=== PATIENT | male | born 1930 | race Hispanic/Latino ===

== ENCOUNTER 2017-02-14 11:00 | Emergency (ER) | payer MEDICARE, BC ==
[2017-02-14 11:04] VITALS: BMI 23.4
[2017-02-14 11:43] VITALS: RESP 18; O2SAT 100
[2017-02-14] MEDS ORDERED: Naproxen 550 mg Tab PO STA (11:45)
[2017-02-14] MEDS ORDERED: Naproxen 550 mg Tab PO ONE (11:50)
--- NOTE | 2017-02-14 12:21 | C.PDOC ---
History Of Present Illness 86 y/o male presents to ED with complaints of low back pain after falling backward from step ladder around 10 am today. Patient states he fell backward to the floor but denies head injury, loc, chest pain, sob, abdominal pain, sensory changes in legs or any other complaints at this time. Time Seen by Provider: 02/14/17 11:22 Chief Complaint (Nursing): Back Pain History Per: Patient History/Exam Limitations: no limitations Onset/Duration Of Symptoms: Hrs Current Symptoms Are (Timing): Still Present Past Medical History Reviewed: Historical Data, Nursing Documentation, Vital Signs Vital Signs: Last Vital Signs Temp 98.1 F 02/14/17 11:29 Pulse 52 L 02/14/17 11:29 Resp 18 02/14/17 11:29 BP 138/68 02/14/17 11:29 Pulse Ox 100 02/14/17 13:14 - Medical History PMH: CAD, Cardia Arrhythmia, Diabetes, HTN, Hypercholesterolemia Surgical History: Coronary Stent (X9) - [facility] Procedures DILATION OF 1 COR ART WITH DRUG-ELUT INTRA, PERC APPROACH (09/30/16) FLUOROSCOPY OF LEFT HEART USING LOW OSMOLAR CONTRAST (09/30/16) FLUOROSCOPY OF MULT COR ART USING L OSM CONTRAST (09/30/16) MEASURE OF CARDIAC SAMPL & PRESSURE, L HEART, PERC APPROACH (09/30/16) NONEXCIS DEBRID OF WOUND, INFECT, OR BURN (10/29/13) TETANUS TOXOID ADMINIST (10/29/13) Family History: States: Unknown Family Hx - Social History Hx Tobacco Use: No Hx Alcohol Use: No Hx Substance Use: No - Immunization History Hx Tetanus Toxoid Vaccination: Yes Hx Influenza Vaccination: Yes Hx Pneumococcal Vaccination: Yes Review Of Systems Except As Marked, All Systems Reviewed And Found Negative. Constitutional: Negative for: Fever, Chills Cardiovascular: Negative for: Chest Pain Respiratory: Negative for: Shortness of Breath Gastrointestinal: Negative for: Abdominal Pain Musculoskeletal: Positive for: Back Pain Skin: Negative for: Rash Neurological: Negative for: Weakness, Numbness Physical Exam - Physical Exam Appears: Other (In mild pain) Skin: Normal Color, Warm Head: Atraumatic, Normacephalic Neck: No Midline Cervical Tenderness Cardiovascular: Rhythm Regular, No Murmur Respiratory: Normal Breath Sounds, No Rales, No Rhonchi, No Wheezing Gastrointestinal/Abdominal: Soft, No Tenderness, No Guarding, No Rebound Back: Paraspinal Tenderness (Paraspinal lumbar tenderness around L4-L5 area ) Extremity: Normal ROM, Capillary Refill (<2 seconds) Neurological/Psych: Oriented x3, Normal Motor (5/5), Normal Sensation Gait: Steady ED Course And Treatment O2 Sat by Pulse Oximetry: 100 (RA) Pulse Ox Interpretation: Normal - Other Rad HIP X-Ray: Viewed By Me, Read By Radiologist Interpretation: Accession No. : [id number]. Patient Name / ID : GAMA BARRAZA / [id number]. Exam Date : 02/14/2017 12:02:17 ( Approved ). Study Comment : Sex / Age : M / 86Y. Creator : HAILEY KNIGHT MD. Dictator : HAILEY KNIGHT MD. Rn Iv Therapy : Pmo Manager : HAILEY KNIGHT MD. Approver2 : Report Date : 02/14/2017 12:32:49. My Comment : . PROCEDURE: Radiographs of the pelvis and right hip joint. HISTORY: RIGHT HIP PAIN S/P FALL. COMPARISON: None. TECHNIQUE: Frontal projection of the pelvis and frog lateral projection of the right hip were obtained. FINDINGS: The pelvic ring is intact. There is no acute displaced fracture or dislocation. Bone alignment and mineralization are normal. The periarticular soft tissues are normal. 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 Atherosclerotic vascular calcifications are present. IMPRESSION: No acute displaced fracture or dislocation. LS spine X-Ray: Viewed By Me, Read By Radiologist Interpretation: Accession No. : [id number]. Patient Name / ID : GAMA BARRAZA / [id number]. Exam Date : 02/14/2017 12:01:34 ( Approved ). Study Comment : Sex / Age : M / 86Y. Creator : HAILEY KNIGHT MD. Dictator : HAILEY KNIGHT MD. Rn Iv Therapy : Pmo Manager : HAILEY KNIGHT MD. Approver2 : Report Date : 02/14/2017 12:30:55. My Comment : . PROCEDURE: Radiographs of the Lumbar Spine. HISTORY: S/P FALL, R/O FX. COMPARISON: No prior. FINDINGS: BONES: There is mild degenerative anterior listhesis of L5 on S1 and mild degenerative retrolisthesis of L2 on L3. There is no acute fracture. There is no acute fracture. Bone mineralization is normal. DISC SPACES: There is advanced multilevel degenerative disc disease with large anterior osteophytes, reduced disc heights and multilevel facet arthropathy, worse at L2-3 and L5-S1. OTHER FINDINGS: There are atherosclerotic calcifications in the abdominal aorta. There are coarse diffuse calcifications in the pancreas consistent with chronic pancreatitis. 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 IMPRESSION: No acute fracture. Progress Note: Patient given Naproxen. Patient re-evaluated and was able to ambulate, felt better. Patient discharged home and instructed to come back to ED if symptoms did not improve. Disposition Counseled Patient/Family Regarding: Studies Performed, Diagnosis, Need For Followup, Rx Given - Disposition Referrals: [facility] [Outside] [facility] [Outside] Doroteo Underwood III, MD [Staff Provider] - Disposition: HOME/ ROUTINE Disposition Time: 12:30 Condition: STABLE Additional Instructions: FOLLOW UP WITH YOUR DOCTOR IN 1-2 DAYS, AND WITH ORTHOPEDICS WITHIN 1 WEEK USE PAIN MEDICATION NEEDED RETURN TO EMERGENCY ROOM IF SYMPTOMS WORSEN Prescriptions: Naproxen [Naprosyn Tab] 375 mg PO BID PRN #20 tab PRN Reason: pain Instructions: Acute Low Back Pain (ED) Forms: General Discharge Instructions Print Language: TRINIDADIAN - POA Present On Arrival: None - Clinical Impression Clinical Impression: Lumbar back sprain - Scribe Statement The provider has reviewed the documentation as recorded by the Daniel Remy All medical record entries made by the Tonnyibsylvester were at my direction and personally dictated by me. I have reviewed the chart and agree that the record accurately reflects my personal performance of the history, physical exam, medical decision making, and the department course for this patient. I have also personally directed, reviewed, and agree with the discharge instructions and disposition.
--- NOTE | 2017-02-14 12:32 | RAD ---
PROCEDURE: Radiographs of the Lumbar Spine. HISTORY: S/P FALL, R/O FX COMPARISON: No prior. FINDINGS: BONES: There is mild degenerative anterior listhesis of L5 on S1 and mild degenerative retrolisthesis of L2 on L3. There is no acute fracture. There is no acute fracture. Bone mineralization is normal DISC SPACES: There is advanced multilevel degenerative disc disease with large anterior osteophytes, reduced disc heights and multilevel facet arthropathy, worse at L2-3 and L5-S1. OTHER FINDINGS: There are atherosclerotic calcifications in the abdominal aorta. There are coarse diffuse calcifications in the pancreas consistent with chronic pancreatitis. 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 IMPRESSION: No acute fracture.
--- NOTE | 2017-02-14 12:34 | RAD ---
PROCEDURE: Radiographs of the pelvis and right hip joint HISTORY: RIGHT HIP PAIN S/P FALL COMPARISON: None TECHNIQUE: Frontal projection of the pelvis and frog lateral projection of the right hip were obtained. FINDINGS: The pelvic ring is intact. There is no acute displaced fracture or dislocation. Bone alignment and mineralization are normal. The periarticular soft tissues are normal. 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 Atherosclerotic vascular calcifications are present. IMPRESSION: No acute displaced fracture or dislocation.
[2017-02-14 13:22] VITALS: BP 170/70; PULSE 68; TEMP 97.6
== END 2017-02-14 12:40 | disposition home or self-care (01) ==
LOC: C.ER 11:00
DX: S33.5XXA Sprain of ligaments of lumbar spine, initial encounter (principal); W10.9XXA Fall (on) (from) unspecified stairs and steps, initial encounter

== ENCOUNTER 2017-09-01 12:49 | Emergency (ER) | payer MEDICARE, BC ==
[2017-09-01 12:50] VITALS: BMI 23.4
[2017-09-01 13:03] VITALS: O2SAT 99
[2017-09-01] MEDS ORDERED: Oxycodone/Acetaminophen 5/325 mg Tab PO STA (13:26)
--- NOTE | 2017-09-01 13:27 | C.PDOC ---
History Of Present Illness 87 year old male presents to ED for evaluation of onset of left side back, and left flank pain after he fell off ladder steps last night, and landed on his back. Notes that pain is worse when he coughs or sneezes. Denies head injury, vision change, nausea, vomiting, or any other complaints. Chief Complaint (Nursing): Back Pain History Per: Patient History/Exam Limitations: no limitations Onset/Duration Of Symptoms: Days Current Symptoms Are (Timing): Still Present Quality Of Discomfort: "Pain" Previous Symptoms: Prior Injury Associated Symptoms: None. denies: Incontinence, New Weakness, New Numbness Recent travel outside of the [place]: No Additional History Per: Patient Past Medical History Reviewed: Historical Data, Nursing Documentation, Vital Signs Vital Signs: Last Vital Signs Temp 97.4 F L 09/01/17 14:27 Pulse 65 09/01/17 14:27 Resp 18 09/01/17 14:27 BP 170/80 H 09/01/17 14:27 Pulse Ox 99 09/01/17 15:33 - Medical History PMH: CAD, Cardia Arrhythmia, Diabetes, HTN, Hypercholesterolemia Surgical History: Coronary Stent (X9) - [facility] Procedures DILATION OF 1 COR ART WITH DRUG-ELUT INTRA, PERC APPROACH (09/30/16) FLUOROSCOPY OF LEFT HEART USING LOW OSMOLAR CONTRAST (09/30/16) FLUOROSCOPY OF MULT COR ART USING L OSM CONTRAST (09/30/16) MEASURE OF CARDIAC SAMPL & PRESSURE, L HEART, PERC APPROACH (09/30/16) NONEXCIS DEBRID OF WOUND, INFECT, OR BURN (10/29/13) TETANUS TOXOID ADMINIST (10/29/13) Family History: States: Unknown Family Hx - Social History Hx Tobacco Use: No Hx Alcohol Use: No Hx Substance Use: No - Immunization History Hx Tetanus Toxoid Vaccination: Yes Hx Influenza Vaccination: Yes Hx Pneumococcal Vaccination: Yes Review Of Systems Except As Marked, All Systems Reviewed And Found Negative. Constitutional: Negative for: Fever, Chills Gastrointestinal: Negative for: Nausea, Vomiting, Abdominal Pain Genitourinary: Negative for: Dysuria, Frequency, Incontinence, Hematuria Musculoskeletal: Positive for: Back Pain Neurological: Negative for: Weakness, Numbness Physical Exam - Physical Exam Appears: Non-toxic, No Acute Distress Skin: Warm, Dry Head: Atraumatic, Normacephalic Eye(s): bilateral: Normal Inspection, EOMI Oral Mucosa: Moist Neck: Normal ROM, Supple Cardiovascular: Rhythm Regular, No Murmur Respiratory: Normal Breath Sounds, No Accessory Muscle Use, No Rales, No Rhonchi , No Wheezing Gastrointestinal/Abdominal: Soft, No Tenderness Back: CVA Tenderness (left), No Vertebral Tenderness, Paraspinal Tenderness ( left lower rib tenderness with ecchymosis to posterior 8, 9, and 10th ribs, no crepitus ) Extremity: Normal ROM, No Deformity Neurological/Psych: Oriented x3, Normal Speech ED Course And Treatment O2 Sat by Pulse Oximetry: 99 (RA) Pulse Ox Interpretation: Normal - Other Rad Chest x-ray X-Ray: Viewed By Me, Read By Radiologist Interpretation: PROCEDURE: Radiographs of the Chest and Left Ribs. HISTORY: trauma. COMPARISON: None available. TECHNIQUE: Frontal radiograph of the chest and multiple oblique radiographs of the left ribs were obtained. FINDINGS : LEFT RIBS: No fracture or focal lesion visualized. LUNGS: Heterogeneous opacity at the left lung base likely atelectasis. PLEURA: No pneumothorax or pleural fluid. CARDIOVASCULAR: Normal sized heart. No pulmonary vascular congestion. OTHER FINDINGS: None. IMPRESSION: Unremarkable radiographs of the chest and left ribs. No left rib fracture. Progress Note: Ribs/chest x-ray, EKG ordered and reviewed. Pt was given Percocet. Patient is being discharged home, with instructions to follow up with PMD in 1-2 days for further evaluation. Return to ED if symptoms persist or worsen. Disposition - Disposition Referrals: [facility] [Outside] Disposition: HOME/ ROUTINE Disposition Time: 18:04 Condition: FAIR Additional Instructions: ice packs to painful areas Prescriptions: Acetaminophen/Hydrocodone Bi [Vicodin 300 mg-5 mg] 1 tab PO QID PRN #12 tab PRN Reason: Pain, Mild (1-3) Instructions: Rib Contusion (ED) Forms: [facility] [employer] (Nepali) Print Language: LITHUANIAN - Clinical Impression Clinical Impression: Rib contusion - Scribe Statement The provider has reviewed the documentation as recorded by the Scribe Arlin Graham All medical record entries made by the Scribe were at my direction and personally dictated by me. I have reviewed the chart and agree that the record accurately reflects my personal performance of the history, physical exam, medical decision making, and the department course for this patient. I have also personally directed, reviewed, and agree with the discharge instructions and disposition.
[2017-09-01] MEDS ORDERED: Oxycodone/Acetaminophen 5/325 mg Tab ONE (13:32)
[2017-09-01 14:28] VITALS: BP 170/80; PULSE 65; RESP 18; TEMP 97.4
--- NOTE | 2017-09-01 15:18 | RAD ---
PROCEDURE: Radiographs of the Chest and Left Ribs. HISTORY: trauma COMPARISON: None available. TECHNIQUE: Frontal radiograph of the chest and multiple oblique radiographs of the left ribs were obtained. FINDINGS: LEFT RIBS: No fracture or focal lesion visualized. LUNGS: Heterogeneous opacity at the left lung base likely atelectasis. PLEURA: No pneumothorax or pleural fluid. CARDIOVASCULAR: Normal sized heart. No pulmonary vascular congestion. OTHER FINDINGS: None. IMPRESSION: Unremarkable radiographs of the chest and left ribs. No left rib fracture.
== END 2017-09-01 14:28 | disposition home or self-care (01) ==
LOC: C.ER 12:49
DX: S20.212A Contusion of left front wall of thorax, initial encounter (principal); W10.9XXA Fall (on) (from) unspecified stairs and steps, initial encounter; Y92.9 Unspecified place or not applicable